=== PATIENT | male | born 1960 | race Caucasian/White ===

== ENCOUNTER 2017-09-18 19:24 | Inpatient (IN) | payer OTHER ==
[~2017-09-18] VITALS: Ht 180.3 cm; Wt 118.0 kg
[2017-09-18 19:35] VITALS: Ht 180.3 cm; Wt 118.0 kg
[2017-09-18 21:58] LABS: BASOPHIL % 0.5 % (0-2); PLATELET COUNT 143 x10^3mcL (130-400); RED CELL DISTRIBUTION WIDTH 13.8 % (11.5-14.5)
[2017-09-18 22:36] LABS: CALCIUM 8.5 mg/dL (8.5-10.1); CARBON DIOXIDE 22.8 mmol/L (21-32); CHLORIDE SERUM 103 mmol/L (98-107); GLUCOSE SERUM 362 mg/dL (74-106); POTASSIUM SERUM 4.2 mmol/L (3.5-5.1); SODIUM SERUM 138 mmol/L (136-145)
[2017-09-18 22:41] LABS: ALBUMIN 3.4 g/dL (3.4-5.0); ALKALINE PHOSPHATASE 105 U/L (46-116); AST/SGOT 59 U/L (15-37); BILIRUBIN TOTAL 0.54 mg/dL (0.20-1.00); TOTAL PROTEIN, SERUM 7.2 g/dL (6.4-8.2)
[2017-09-18 22:57] LABS: CREATININE SERUM 1.1 mg/dL (0.7-1.3); GFR1 > 60 mL/min
[2017-09-18 23:18] LABS: ALT/SGPT 73 U/L (16-63)
[2017-09-19 00:24] VITALS: BP 134/93
[2017-09-19 02:20] LABS: FREE T4 1.09 ng/dL (0.76-1.46); FREE THYROXINE INDEX 2.9 ug/dL (1.4-4.5); T4(THYROXINE) 7.6 ug/dL (4.7-13.3)
[2017-09-19 02:42] LABS: T3 TOTAL 0.98 ng/mL
[2017-09-19 02:59] LABS: CHOLESTEROL 177 mg/dL (<200); LIPASE 121 IU/L (73-393); MAGNESIUM 1.9 mg/dL (1.8-2.4); PHOSPHOROUS 2.8 mg/dL (2.5-4.9)
[2017-09-19 03:04] LABS: AMYLASE 131 U/L (25-115); CHOLESTEROL/HDL RATIO 7.7; HDL CHOLESTEROL 23 mg/dL (40-60); TRIGLYCERIDES 1141 mg/dL (<150)
[2017-09-19] MEDS ORDERED: DESOWEN0.05% TOP (04:22)
[2017-09-19 05:19] VITALS: BP 112/78
[2017-09-19 07:13] LABS: microscopic required? NO
[2017-09-19 07:29] LABS: BASOPHIL % 0.8 % (0-2); PLATELET COUNT 133 x10^3mcL (130-400); RED CELL DISTRIBUTION WIDTH 13.2 % (11.5-14.5)
[2017-09-19 07:34] LABS: CALCIUM 8.4 mg/dL (8.5-10.1); CARBON DIOXIDE 27.2 mmol/L (21-32); CHLORIDE SERUM 107 mmol/L (98-107); GFR1 > 60 mL/min; GLUCOSE SERUM 281 mg/dL (74-106); POTASSIUM SERUM 3.9 mmol/L (3.5-5.1); SODIUM SERUM 142 mmol/L (136-145)
[2017-09-19 08:09] LABS: UA SPECIFIC GRAVITY >=1.030 (1.005-1.035); urine erythrocyte NEGATIVE (NEGATIVE)
[2017-09-19 08:24] LABS: AMPHETAMINE QUAL UR NONE DETECTED (NEG <=1000)
[2017-09-19 09:36] VITALS: BP 131/83
[2017-09-19 13:28] VITALS: BP 114/74
[2017-09-19 16:41] VITALS: BP 115/74
[2017-09-19 21:13] VITALS: BP 123/79
[2017-09-20 05:16] VITALS: BP 148/83
[2017-09-20 10:01] VITALS: BP 116/75
[2017-09-20] MEDS ORDERED: FENOFIBRATE145 M1 PO (12:38)
[2017-09-20] MEDS ORDERED: KEF500 PO (12:38)
[2017-09-20] MEDS ORDERED: LIPI20 PO (12:38)
[2017-09-20 12:43] VITALS: BP 116/75
[2017-09-20] MEDS ORDERED: METFORMIN HCL1000 MG PO (13:01)
[2017-09-20] MEDS ORDERED: BD LACTINEX1.4 MG PO (13:10)
[2017-09-20] MEDS ORDERED: BLOOD GLUCOSE1 EAC3 MC (16:30)
[2017-09-20] MEDS ORDERED: LANCETS1 EAC1 MC (16:31)
[2017-09-20] MEDS ORDERED: BLOOD GLUCOSE1 EACH MC (16:31)
== END 2017-09-20 14:25 | disposition home or self-care (01) | DRG 197 ==
LOC: ED 19:24 → DU 22:22
PROVIDERS: Emergency Medicine; ADMIT Family Medicine
PROC: 0HQLXZZ Repair Left Lower Leg Skin, External Approach (ICD-10-PCS; principal; 2017-09-18)
DX: I83.92 Asymptomatic varicose veins of left lower extremity (principal); D68.69 Other thrombophilia; S81.812A Laceration without foreign body, left lower leg, initial encounter; E11.65 Type 2 diabetes mellitus with hyperglycemia; L80 Vitiligo; I10 Essential (primary) hypertension; Z68.34 Body mass index [BMI] 34.0-34.9, adult; Z86.718 Personal history of other venous thrombosis and embolism; B19.20 Unspecified viral hepatitis C without hepatic coma; E78.2 Mixed hyperlipidemia; X58.XXXA Exposure to other specified factors, initial encounter; Y93.89 Activity, other specified; Y92.89 Other specified places as the place of occurrence of the external cause; Y99.8 Other external cause status
CPT/HCPCS: 82962; 84439; J2001; J7030; Q0092